=== PATIENT | female | born 1990 | race Two or more races ===

== ENCOUNTER 2017-04-28 19:11 | Emergency (ER) | payer MEDICAID ==
[~2017-04-28] VITALS: Ht 170.2 cm; Wt 112.5 kg
[2017-04-28] MEDS ORDERED: NKM (19:21)
--- NOTE | 2017-04-28 19:29 | Emergency Room Report ---
History of Present Illness General Chief Complaint: Abdominal Pain Source: Patient Present Illness HPI The patient states that she developed diarrhea 3 days ago along with right upper quadrant abdominal pain. She states over the past day she has also had recurrent nausea and vomiting and worsening of the pain in her right upper abdomen. She denies fever or chills. She denies dysuria or hematuria. She does admit that she's had several episodes of similar pain over the past few months. However not as severe. She has no other complaints. Allergies: Coded Allergies: No Known Allergies (Unverified , 10/09/15) Patient History Past Medical History: none, see triage record Social History: Reports: alcohol use, Denies: drug use, smoking Last Menstrual Period: 02/06/17 Now: No : 3 Para: 2 Reviewed Nursing Documentation: PMH: Agreed, PSxH: Agreed Nursing Documentation-PMH Past Medical History: No Stated History Review of Systems All Other Systems: negative except mentioned in HPI Physical Exam Vital Signs Date Time Temp Pulse Resp B/P Pulse Ox O2 Delivery O2 Flow Rate FiO2 04/28/17 19:17 98.4 96 14 127/82 97 Room Air Sp02 EP Interpretation: reviewed, normal General Appearance: no apparent distress, alert, GCS 15, non-toxic Head: normocephalic, atraumatic Eyes: bilateral eye PERRL, bilateral eye normal inspection ENT: hearing grossly normal, normal pharynx, no angioedema, normal voice Neck: full range of motion, supple/symm/no masses Respiratory: chest non-tender, lungs clear, normal breath sounds, speaking full sentences Cardiovascular #1: regular rate, rhythm, no edema Gastrointestinal: normal bowel sounds, soft, non-distended, no guarding, no rebound, tenderness - RUQ Rectal: deferred Musculoskeletal: back normal, gait/station normal, normal range of motion, non- tender Neurologic: alert, oriented x3, responsive, motor strength/tone normal, sensory intact, speech normal Psychiatric: judgement/insight normal, memory normal, mood/affect normal, no suicidal/homicidal ideation Skin: normal color, no rash, warm/dry, well hydrated Medical Decision Making Diagnostic Impression: Primary Impression: Abdominal pain Additional Impression: Transaminitis ER Course This patient presents with right upper quadrant abdominal pain with associated nausea and vomiting. She is also had diarrhea. Most likely this patient has a gastroenteritis. However, laboratory workup did show transaminitis. This could represent choledocho cholelithiasis. Also, the patient is exquisitely tender to palpation in the right upper cord and I felt that I should obtain a right upper quadrant ultrasound to rule out cholecystitis. There is no evidence of pancreatitis with a normal lipase. I do not suspect an atypical appendicitis or diverticulitis. Therefore, did not obtain a CT of the abdomen and pelvis at this time. At the time of this dictation, the patient is pending a right upper quadrant ultrasound. Please see addendum by Dr. Montejo. Labs Test 04/28/17 19:43 White Blood Count 10.3 K/UL (4.8-10.8) Red Blood Count 4.69 M/UL (4.20-5.40) Hemoglobin 12.4 G/DL (12.0-16.0) Hematocrit 38.1 % (37.0-47.0) Mean Corpuscular Volume 81 FL (80-99) Mean Corpuscular Hemoglobin 26.5 PG (27.0-31.0) Mean Corpuscular Hemoglobin Concent 32.7 G/DL (32.0-36.0) Red Cell Distribution Width 13.9 % (11.6-14.8) Platelet Count 280 K/UL (150-450) Mean Platelet Volume 7.4 FL (6.5-10.1) Neutrophils (%) (Auto) 78.2 % (45.0-75.0) Lymphocytes (%) (Auto) 16.5 % (20.0-45.0) Monocytes (%) (Auto) 4.4 % (1.0-10.0) Eosinophils (%) (Auto) 0.4 % (0.0-3.0) Basophils (%) (Auto) 0.6 % (0.0-2.0) Urine Color Yellow Urine Appearance Clear Urine pH 5 (4.5-8.0) Urine Specific [place] 1.025 (1.005-1.035) Urine Protein 1+ (NEGATIVE) Urine Glucose (UA) Negative (NEGATIVE) Urine Ketones Negative (NEGATIVE) Urine Occult Blood 3+ (NEGATIVE) Urine Nitrite Negative (NEGATIVE) Urine Bilirubin Negative (NEGATIVE) Urine Urobilinogen Normal MG/DL (0.0-1.0) Urine Leukocyte Esterase 2+ (NEGATIVE) Urine RBC 2-4 /HPF (0 - 2) Urine WBC 5-10 /HPF (0 - 2) Urine Squamous Epithelial Cells Many /LPF (NONE/OCC) Urine Bacteria Moderate /HPF (NONE) Urine HCG, Qualitative Negative Sodium Level 141 mEQ/L (135-145) Potassium Level 3.9 mEQ/L (3.4-4.9) Chloride Level 102 mEQ/L (98-107) Carbon Dioxide Level 26 mEQ/L (20-30) Anion Gap 13 (5-15) Blood Urea Nitrogen 10 mg/dL (7-23) Creatinine 0.8 mg/dL (0.5-0.9) Estimat Glomerular Filtration Rate > 60 mL/min (>60) Glucose Level 120 mg/dL (74-106) Calcium Level 9.0 mg/dL (8.6-10.2) Total Bilirubin 0.5 mg/dL (0.0-1.2) Aspartate Amino Transf (AST/SGOT) 57 U/L (5-40) Alanine Aminotransferase (ALT/SGPT) 77 U/L (3-33) Alkaline Phosphatase 106 U/L (35-104) Total Protein 8.0 g/dL (6.6-8.7) Albumin 4.3 g/dL (3.5-5.2) Globulin 3.7 g/dL Albumin/Globulin Ratio 1.1 (1.0-2.7) Lipase 15 U/L (< 60) Last Vital Signs Date Time Temp Pulse Resp B/P Pulse Ox O2 Delivery O2 Flow Rate FiO2 04/28/17 19:17 98.4 96 14 127/82 97 Room Air Condition: Stable KEVIN TORRES D.O. Apr 28, 2017 19:29
[2017-04-28 19:51] VITALS: BP 120/75
[2017-04-28 20:32] LABS: APPEARANCE,URINE CLEAR; KETONES,URINE NEGATIVE (NEGATIVE); LEUKOCYTE ESTERASE ,URINE 2+ (NEGATIVE); NITRITE,URINE NEGATIVE (NEGATIVE); PH,URINE 5 (4.5-8.0); PROTEIN,URINE 1+ (NEGATIVE); UROBILINOGEN,URINE NORMAL MG/DL (0.0-1.0)
[2017-04-28 20:39] LABS: BASOPHILS % (AUTO) 0.6 % (0.0-2.0); EOSINOPHILS % (AUTO) 0.4 % (0.0-3.0); LYMPHOCYTES % (AUTO) 16.5 % (20.0-45.0); MEAN CORPUSCULAR HEMOGLOBIN 26.5 PG (27.0-31.0); MEAN CORPUSCULAR HGB CONC 32.7 G/DL (32.0-36.0); MEAN CORPUSCULAR VOLUME 81 FL (80-99); MEAN PLATELET VOLUME 7.4 FL (6.5-10.1); MONOCYTES % (AUTO) 4.4 % (1.0-10.0); NEUTROPHILS % (AUTO) 78.2 % (45.0-75.0); PLATELET COUNT 280 K/UL (150-450); RED BLOOD COUNT 4.69 M/UL (4.20-5.40); RED CELL DISTRIBUTION WIDTH 13.9 % (11.6-14.8); WHITE BLOOD COUNT 10.3 K/UL (4.8-10.8)
[2017-04-28 20:40] LABS: ALANINE AMINOTRANSFERASE 77 U/L (3-33); ALBUMIN/GLOBULIN RATIO 1.1 (1.0-2.7); ANION GAP 13 (5-15); ASPARTATE AMINO TRANSFERASE 57 U/L (5-40); CARBON DIOXIDE 26 mEQ/L (20-30); CHLORIDE 102 mEQ/L (98-107); CREATININE 0.8 mg/dL (0.5-0.9); GLOMERULAR FILTRATION RATE > 60 mL/min (>60); HEMOLYSIS 3; LIPASE 15 U/L (< 60); POTASSIUM 3.9 mEQ/L (3.4-4.9); SODIUM 141 mEQ/L (135-145)
[2017-04-28 20:51] LABS: BACTERIA,URINE MODERATE /HPF; SQUAMOUS EPITHELIAL CELL,UR MANY /LPF (NONE/OCC)
[2017-04-28] MEDS ORDERED: IBUPROFEN600 MG ORAL (22:30)
[2017-04-28 22:58] VITALS: BP 118/64
[2017-04-28 23:01] VITALS: BP 118/64
--- NOTE | 2017-04-29 09:52 | Diagnostic Imaging Report ---
Indications: Right upper quadrant abdominal pain, nausea and vomiting, elevated hepatic and renal function tests--third episode of same and last 7 months, per patient Technique: Transabdominal real-time grayscale and duplex Doppler imaging of the upper abdomen and retroperitoneum was performed. Findings: Comparison: None. Liver normal size and surface contour, parenchymal echogenicity. No focal lesions. Gallbladder contains multiple echogenic shadowing foci.. No mural thickening or adjacent fluid collections. Sonographic Watson sign not reported.. Bile ducts normal caliber. Common bile duct 5 mm. Pancreas head and body suboptimally visualized without obvious abnormality; tail completely obscured. Spleen 13 cm, no focal abnormality. Right kidney unremarkable. Left kidney unremarkable. Abdominal aorta, intrahepatic portion of inferior vena cava patent, normal caliber. Duplex Doppler imaging demonstrates antegrade flow in splenic, portal, hepatic veins. No ascites. IMPRESSION: Cholelithiasis. No imaging evidence of acute cholecystitis. Sonographic Waston sign is not reported. Correlate clinically. Suboptimal visualization of pancreas Splenomegaly Remainder of exam unremarkable.
== END 2017-04-28 23:00 | disposition home or self-care (01) ==
LOC: EMR 20:03
DX: R10.11 Right upper quadrant pain (principal); R11.2 Nausea with vomiting, unspecified; R16.1 Splenomegaly, not elsewhere classified; R19.7 Diarrhea, unspecified; R74.0 Nonspecific elevation of levels of transaminase and lactic acid dehydrogenase [LDH]; K80.20 Calculus of gallbladder without cholecystitis without obstruction; Z72.89 Other problems related to lifestyle
CPT/HCPCS: 36415; 76700; 80053; 81003; 81025; 83690; 85025; 87086; 87181; 96374; 96375; 99284; J2405

== ENCOUNTER 2018-10-06 01:16 | Emergency (ER) | payer MEDICAID ==
[~2018-10-06] VITALS: Ht 170.2 cm; Wt 113.4 kg
[~2018-10-06 01:16] MED LIST: IBUPROFEN600 MG ORAL; NKM
[2018-10-06] MEDS ORDERED: NKM (01:30)
[2018-10-06 01:40] VITALS: BP 126/82
[2018-10-06] MEDS ORDERED: Sodium Chloride 500ML 500 ML IV ONE (01:43)
[2018-10-06] MEDS ORDERED: Morphine Sulfate 4mg/ml Inj (IV/IM USE ONLY) IVP ONE (01:45)
[2018-10-06 02:13] LABS: BASOPHILS % (AUTO) 0.8 % (0.0-2.0); EOSINOPHILS % (AUTO) 0.5 % (0.0-3.0); HEMATOCRIT 40.8 % (37.0-47.0); HEMOGLOBIN 13.5 G/DL (12.0-16.0); LYMPHOCYTES % (AUTO) 20.7 % (20.0-45.0); MEAN CORPUSCULAR VOLUME 77 FL (80-99); MONOCYTES % (AUTO) 3.8 % (1.0-10.0); NEUTROPHILS % (AUTO) 74.2 % (45.0-75.0); PLATELET COUNT 342 K/UL (150-450); RED BLOOD COUNT 5.29 M/UL (4.20-5.40); RED CELL DISTRIBUTION WIDTH 12.3 % (11.6-14.8); WHITE BLOOD COUNT 11.8 K/UL (4.8-10.8)
[2018-10-06 02:19] LABS: BILIRUBIN, URINE NEGATIVE (NEGATIVE); GLUCOSE, URINE (UA) NEGATIVE (NEGATIVE); KETONES,URINE NEGATIVE (NEGATIVE); NITRITE,URINE NEGATIVE (NEGATIVE); PH,URINE 6.5 (4.5-8.0); PROTEIN,URINE 1+ (NEGATIVE); UROBILINOGEN,URINE 1 MG/DL (0.0-1.0)
[2018-10-06 02:22] LABS: ANION GAP 9 mmol/L (5-15); BLOOD UREA NITROGEN 16 mg/dL (7-18); CARBON DIOXIDE 27 MMOL/L (21-32); CHLORIDE 105 MMOL/L (98-107); CREATININE 0.8 MG/DL (0.55-1.30); POTASSIUM 3.7 MMOL/L (3.5-5.1); SODIUM 141 MMOL/L (136-145)
[2018-10-06 02:27] LABS: ALANINE AMINOTRANSFERASE 25 U/L (12-78); ALBUMIN 3.5 G/DL (3.4-5.0); ALBUMIN/GLOBULIN RATIO 0.6 (1.0-2.7); ALKALINE PHOSPHATASE 102 U/L (46-116); ASPARTATE AMINO TRANSFERASE 15 U/L (15-37); BILIRUBIN,TOTAL 0.3 MG/DL (0.2-1.0)
[2018-10-06 02:29] LABS: APPEARANCE,URINE CLEAR; COLOR,URINE YELLOW; LEUKOCYTE ESTERASE ,URINE 1+ (NEGATIVE)
[2018-10-06] MEDS ORDERED: Ketorolac 30mg Inj IV ONE (02:45)
[2018-10-06 03:40] VITALS: BP 130/83
[2018-10-06] MEDS ORDERED: ACETAMINOPHEN-1 EAC1 ORAL (03:48)
[2018-10-06 03:57] VITALS: BP 130/83
--- NOTE | 2018-10-06 06:18 | Emergency Room Report ---
History of Present Illness General Chief Complaint: Abdominal Pain Source: Patient Present Illness HPI 27-year-old female presents ED for evaluation. Complaining of right upper quadrant pain 1 day. Sharp, 8 out of 10, radiating to the back. Notes nausea and vomiting. Denies fevers chills. Denies chest pain or shortness of breath. States she's had few episodes of similar pain in the past. Was told that she has gallstones. No other aggravating relieving factors. Denies any other associated symptoms Allergies: Coded Allergies: No Known Allergies (Unverified , 10/09/15) Patient History Past Medical History: none Past Surgical History: none Pertinent Family History: none Social History: Denies: smoking, alcohol use, drug use Last Menstrual Period: sep 07, 2018 Now: No Immunizations: UTD Reviewed Nursing Documentation: PMH: Agreed; PSxH: Agreed Nursing Documentation-PMH Past Medical History: No Stated History Review of Systems All Other Systems: negative except mentioned in HPI Physical Exam Vital Signs Date Time Temp Pulse Resp B/P (MAP) Pulse Ox O2 Delivery O2 Flow Rate FiO2 10/06/18 01:25 98.8 75 16 126/82 99 10/06/18 01:40 Room Air 99 Sp02 EP Interpretation: reviewed, normal General Appearance: well appearing, alert, obese Head: normocephalic, atraumatic Eyes: bilateral eye normal inspection, bilateral eye PERRL ENT: hearing grossly normal, normal pharynx, no angioedema, normal voice Neck: full range of motion, supple/symm/no masses Respiratory: chest non-tender, lungs clear, normal breath sounds, speaking full sentences Cardiovascular #1: regular rate, rhythm, no edema Cardiovascular #2: 2+ carotid (R), 2+ carotid (L), 2+ radial (R), 2+ radial (L) , 2+ dorsalis pedis (R), 2+ dorsalis pedis (L) Gastrointestinal: tenderness - RUQ Rectal: deferred Genitourinary: normal inspection, no CVA tenderness Musculoskeletal: back normal, gait/station normal, normal range of motion, non- tender Neurologic: alert, oriented x3, responsive, motor strength/tone normal, sensory intact, speech normal Psychiatric: judgement/insight normal, memory normal, mood/affect normal, no suicidal/homicidal ideation Reflexes: 3+ bicep (R), 3+ bicep (L), 3+ tricep (R), 3+ tricep (L), 3+ knee (R) , 3+ knee (L) Skin: normal color, no rash, warm/dry, well hydrated Lymphatic: no adenopathy Medical Decision Making Diagnostic Impression: Primary Impression: Cholelithiasis Qualified Codes: K80.20 - Calculus of gallbladder without cholecystitis without obstruction ER Course Hospital Course 27-year-old F presents to ED with RUQ abdominal pain Differential diagnosis includes - pyelonephritis, kidney stone, gastritis, cholecystitis Clinical course Patient placed on stretcher. After initial history and physical I ordered labs , IV fluids, pain medications and US Labs - no leukocytosis, electrolytes ok, LFTs normal, UA unremarkable US shows gallstones, some GB thickening, negative murphys sign, CBD 8mm Upon reassessment, patient states pain has improved. I discussed with patient options for outpatient surgical referral given patient has had 3-4 episodes of pain. Recommend low-fat diet as fast food greasy food can trigger the symptoms I feel this is a highly complex case requiring extensive working including EKG/ Rhythm strip, Xray/CT/US, Blood/urine lab work, repeat exams while in ED, and administration of strong opiates/narcotics for pain control, admission to hospital or close patient follow up. Diagnosis - cholelithiasis Stable and discharged to home with prescription for Tylenol #3. Followup with PMD/surgery. Return to ED if symptoms recur or worsen Labs Test 10/06/18 02:00 White Blood Count 11.8 K/UL (4.8-10.8) Red Blood Count 5.29 M/UL (4.20-5.40) Hemoglobin 13.5 G/DL (12.0-16.0) Hematocrit 40.8 % (37.0-47.0) Mean Corpuscular Volume 77 FL (80-99) Mean Corpuscular Hemoglobin 25.5 PG (27.0-31.0) Mean Corpuscular Hemoglobin Concent 33.1 G/DL (32.0-36.0) Red Cell Distribution Width 12.3 % (11.6-14.8) Platelet Count 342 K/UL (150-450) Mean Platelet Volume 6.9 FL (6.5-10.1) Neutrophils (%) (Auto) 74.2 % (45.0-75.0) Lymphocytes (%) (Auto) 20.7 % (20.0-45.0) Monocytes (%) (Auto) 3.8 % (1.0-10.0) Eosinophils (%) (Auto) 0.5 % (0.0-3.0) Basophils (%) (Auto) 0.8 % (0.0-2.0) Urine Color Yellow Urine Appearance Clear Urine pH 6.5 (4.5-8.0) Urine Specific [place] 1.020 (1.005-1.035) Urine Protein 1+ (NEGATIVE) Urine Glucose (UA) Negative (NEGATIVE) Urine Ketones Negative (NEGATIVE) Urine Blood 1+ (NEGATIVE) Urine Nitrite Negative (NEGATIVE) Urine Bilirubin Negative (NEGATIVE) Urine Urobilinogen 1 MG/DL (0.0-1.0) Urine Leukocyte Esterase 1+ (NEGATIVE) Urine RBC 2-4 /HPF (0 - 2) Urine WBC 2-4 /HPF (0 - 2) Urine Squamous Epithelial Cells Moderate /LPF (NONE/OCC) Urine Bacteria Few /HPF (NONE) Urine HCG, Qualitative Negative (NEGATIVE) Sodium Level 141 MMOL/L (136-145) Potassium Level 3.7 MMOL/L (3.5-5.1) Chloride Level 105 MMOL/L (98-107) Carbon Dioxide Level 27 MMOL/L (21-32) Anion Gap 9 mmol/L (5-15) Blood Urea Nitrogen 16 mg/dL (7-18) Creatinine 0.8 MG/DL (0.55-1.30) Estimat Glomerular Filtration Rate > 60 mL/min (>60) Glucose Level 125 MG/DL (74-106) Calcium Level 9.0 MG/DL (8.5-10.1) Total Bilirubin 0.3 MG/DL (0.2-1.0) Aspartate Amino Transf (AST/SGOT) 15 U/L (15-37) Alanine Aminotransferase (ALT/SGPT) 25 U/L (12-78) Alkaline Phosphatase 102 U/L (46-116) Total Protein 8.9 G/DL (6.4-8.2) Albumin 3.5 G/DL (3.4-5.0) Globulin 5.4 g/dL Albumin/Globulin Ratio 0.6 (1.0-2.7) Lipase 80 U/L (73-393) CT/MRI/US Diagnostic Results CT/MRI/US Diagnostic Results : Imaging Test Ordered: ABD US Impression GB thickening. gallstones. (-) murphys, CBD 8mm. Last Vital Signs Date Time Temp Pulse Resp B/P (MAP) Pulse Ox O2 Delivery O2 Flow Rate FiO2 10/06/18 03:57 98.8 73 18 130/83 99 Room Air 99 Status: improved Disposition: HOME, SELF-CARE Condition: Stable Scripts Acetaminophen With Codeine (T#3) (TYLENOL #3 TAB*) Y Tab 1 TAB ORAL Q8H PRN for For Pain, #20 TAB Prov: Jhonny Martell MD 10/06/18 Referrals: [facility],REFERRING (PCP) Marvin Sepulveda Patient Instructions: Cholelithiasis, [id number] Jhonny Martell MD Oct 06, 2018 06:18
--- NOTE | 2018-10-06 10:34 | Diagnostic Imaging Report ---
Indication: Abdominal pain Technique: Parry-scale and duplex images of the upper abdomen were obtained. Doppler interrogation of the hepatic and pancreatic vessels Comparison: 04/28/2017 Findings: Gallbladder demonstrates gallstones. Gallbladder wall is thickened, measures 5 mm thick. Sonographic Watson's sign is negative. Common bile duct measures 8 mm in diameter. No intrahepatic biliary ductal dilatation. Liver demonstrates normal echogenicity, no focal abnormality. Portal vein and hepatic veins are patent. Pancreas is unremarkable. Spleen is unremarkable. Left kidney measures 12.7 cm in length. Right kidney measures 10.4 cm length. Both kidneys demonstrate normal echogenicity. There is no hydronephrosis. No focal abnormality . Non-aneurysmal abdominal aorta . Compared to the prior study, cholelithiasis was previously reported. The gallbladder wall thickening is a new finding. The common bile duct dilatation is a new finding. Impression: Cholelithiasis, also reported on prior exam.. Gallbladder wall thickening, raises concern for acute cholecystitis. Consider hepatobiliary nuclear scan if there is high clinical suspicion Mildly dilated common bile duct, raises concern for downstream obstruction. Correlate with liver function tests, consider MRCP if clinically indicated This agrees with the preliminary interpretation provided overnight by [facility].
== END 2018-10-06 03:57 | disposition home or self-care (01) ==
LOC: EMR 02:07
DX: K80.20 Calculus of gallbladder without cholecystitis without obstruction (principal)
CPT/HCPCS: 36415; 76700; 80053; 81003; 81025; 83690; 85025; 96374; 96375; 99284; J1885; J2270; J2405; J7040

== ENCOUNTER 2020-04-30 14:07 | Emergency (ER) | payer MEDICAID ==
[~2020-04-30] VITALS: Ht 170.2 cm; Wt 125.2 kg
[~2020-04-30 14:07] MED LIST changes: +ACETAMINOPHEN-1 EAC1 ORAL
[2020-04-30 15:14] LABS: APPEARANCE,URINE VERY CLOUDY; BILIRUBIN, URINE NEGATIVE (NEGATIVE); GLUCOSE, URINE (UA) NEGATIVE (NEGATIVE); KETONES,URINE 1+ (NEGATIVE); LEUKOCYTE ESTERASE ,URINE 3+ (NEGATIVE); NITRITE,URINE NEGATIVE (NEGATIVE); PH,URINE 6.5 (4.5-8.0); PROTEIN,URINE 2+ (NEGATIVE); UROBILINOGEN,URINE 1 MG/DL (0.0-1.0)
[2020-04-30 15:15] LABS: BASOPHILS % (AUTO) 1.2 % (0.0-2.0); EOSINOPHILS % (AUTO) 0.8 % (0.0-3.0); HEMATOCRIT 38.8 % (37.0-47.0); HEMOGLOBIN 12.6 G/DL (12.0-16.0); MEAN CORPUSCULAR VOLUME 81 FL (80-99); MONOCYTES % (AUTO) 5.5 % (1.0-10.0); NEUTROPHILS % (AUTO) 62.6 % (45.0-75.0); PLATELET COUNT 302 K/UL (150-450); RED BLOOD COUNT 4.81 M/UL (4.20-5.40); WHITE BLOOD COUNT 11.5 K/UL (4.8-10.8)
[2020-04-30 15:16] LABS: COLOR,URINE RED
--- NOTE | 2020-04-30 15:20 | Emergency Room Report ---
History of Present Illness General Chief Complaint: Complications Source: Patient Present Illness HPI 29 YO female presents to the ED c/o non painful vaginal bleeding x 4 days. Pt. reports being approx. 8 weeks . She is . PT. estimates changing a pad 3 times a day on the first two days. Pt. states not ( today), she sees dark colored clots when urinating. She denies rashes, genital sores, tender lymph nodes. Abdominal pain /tenderness. She denies cramping. She denies vaginal discharge. Denies constipation or diarrhea. She denies N/V, Fevers or chills. She has appt. with OBGYN tomorrow. She reports having a miscarriage in 2006. She is not sure what blood type she is. Allergies: Coded Allergies: No Known Allergies (Unverified , 10/09/15) COVID-19 Screening Contact w/high risk pt: No Recent Travel to affected area: No Experienced COVID-19 symptoms?: No COVID-19 Testing performed TANK BUILDER: No Patient History Past Medical History: see triage record Past Surgical History: none Pertinent Family History: none Last Menstrual Period: 03/05/20 Now: Yes : 4 Para: 2 Reviewed Nursing Documentation: PMH: Agreed; PSxH: Agreed Nursing Documentation-PMH Past Medical History: No Stated History Review of Systems All Other Systems: negative except mentioned in HPI Physical Exam Vital Signs Date Time Temp Pulse Resp B/P (MAP) Pulse Ox O2 Delivery O2 Flow Rate FiO2 04/30/20 14:41 98.1 97 16 106/74 (85) 99 Room Air Sp02 EP Interpretation: reviewed, normal General Appearance: no apparent distress, alert, GCS 15, non-toxic Head: normocephalic, atraumatic Eyes: bilateral eye normal inspection, bilateral eye PERRL ENT: hearing grossly normal, normal voice Neck: full range of motion Respiratory: lungs clear, normal breath sounds, speaking full sentences Cardiovascular #1: regular rate, rhythm Gastrointestinal: normal bowel sounds, non tender, soft, non-distended, no guarding Genitourinary: normal inspection, no CVA tenderness, deferred - for US. Musculoskeletal: back normal, normal range of motion, gait/station normal, non- tender Neurologic: alert, motor strength/tone normal, oriented x3, sensory intact, responsive, speech normal Psychiatric: judgement/insight normal Skin: no rash, normal color Lymphatic: no adenopathy Medical Decision Making PA Attestation Dr. Hinds is my supervising Physician whom patient management has been discussed with. Diagnostic Impression: Primary Impression: UTI in Qualified Codes: O23.41 - Unspecified infection of urinary tract in , first trimester Additional Impressions: Miscarriage, threatened, early Vaginal bleeding during ER Course 29 YO female presents to the ED c/o non painful vaginal bleeding x 4 days. Pt. reports being approx. 8 weeks . She is . PT. estimates changing a pad 3 times a day on the first two days. Pt. states not ( today), she sees dark colored clots when urinating. She denies rashes, genital sores, tender lymph nodes. Abdominal pain /tenderness. She denies cramping. She denies vaginal discharge. Denies constipation or diarrhea. She denies N/V, Fevers or chills. She has appt. with OBGYN tomorrow. She reports having a miscarriage in 2006. She is not sure what blood type she is. Ddx considered but are not limited to: Fibroid, ectopic , Fibroid, Spontaneous ,placenta previa, placenta abruptio Vital signs: are WNL, pt. is afebrile H&PE are most consistent with: Spotting during early , ORDERS: -CBC: unremarkable/wbc 11.5 -BMP: unremarkable -UA: POSITIVE FOR UTI , presence of blood and RBC's as well -Serum Hcg Quant: [id number] -ABO: O POSITIVE - Blood/RH type and screen- see attached labs -Pelvic US complete- IMPRESSION:A SMALL GESTATIONAL SAC APPROXIMATELY 4 WEEKS BY SONOGRAPHIC MEASUREMENTS. SMALL YOLK SAC NOTED BUT NO DEFINITE POLE SEEN AT THIS TIME. ED INTERVENTIONS: None at this time. D/w pt. proper OBGYN follow up and repeat blood work ( HCg) and US. D/w pt. this may represent a possible miscarriage. -I do not identify an emergent condition at this time. With current presentation , pt. is stable for close outpatient follow up and conservative treatment. D/ w pt. to return promptly to ED with worsening or new symptoms.- Pt. verbalizes' understanding and agreement with proposed treatment plan. DISCHARGE: At this time pt. is stable for d/c to home. Will provide printed patient care instructions, and any necessary prescriptions. Care plan and follow up instructions have been discussed with the patient prior to discharge. Labs Test 04/30/20 14:50 White Blood Count 11.5 K/UL (4.8-10.8) Red Blood Count 4.81 M/UL (4.20-5.40) Hemoglobin 12.6 G/DL (12.0-16.0) Hematocrit 38.8 % (37.0-47.0) Mean Corpuscular Volume 81 FL (80-99) Mean Corpuscular Hemoglobin 26.2 PG (27.0-31.0) Mean Corpuscular Hemoglobin Concent 32.5 G/DL (32.0-36.0) Red Cell Distribution Width 14.0 % (11.6-14.8) Platelet Count 302 K/UL (150-450) Mean Platelet Volume 7.2 FL (6.5-10.1) Neutrophils (%) (Auto) 62.6 % (45.0-75.0) Lymphocytes (%) (Auto) 30.0 % (20.0-45.0) Monocytes (%) (Auto) 5.5 % (1.0-10.0) Eosinophils (%) (Auto) 0.8 % (0.0-3.0) Basophils (%) (Auto) 1.2 % (0.0-2.0) Urine Color Red Urine Appearance Very cloudy Urine pH 6.5 (4.5-8.0) Urine Specific [place] 1.010 (1.005-1.035) Urine Protein 2+ (NEGATIVE) Urine Glucose (UA) Negative (NEGATIVE) Urine Ketones 1+ (NEGATIVE) Urine Blood 5+ (NEGATIVE) Urine Nitrite Negative (NEGATIVE) Urine Bilirubin Negative (NEGATIVE) Urine Urobilinogen 1 MG/DL (0.0-1.0) Urine Leukocyte Esterase 3+ (NEGATIVE) Urine RBC Tntc /HPF (0 - 2) Urine WBC 10-15 /HPF (0 - 2) Urine Squamous Epithelial Cells Moderate /LPF (NONE/OCC) Urine Bacteria Moderate /HPF (NONE) Sodium Level 138 MMOL/L (136-145) Potassium Level 3.7 MMOL/L (3.5-5.1) Chloride Level 103 MMOL/L (98-107) Carbon Dioxide Level 28 MMOL/L (21-32) Anion Gap 7 mmol/L (5-15) Blood Urea Nitrogen 11 mg/dL (7-18) Creatinine 0.7 MG/DL (0.55-1.30) Estimat Glomerular Filtration Rate > 60 mL/min (>60) Glucose Level 107 MG/DL (74-106) Calcium Level 8.4 MG/DL (8.5-10.1) Total Bilirubin 0.3 MG/DL (0.2-1.0) Aspartate Amino Transf (AST/SGOT) 16 U/L (15-37) Alanine Aminotransferase (ALT/SGPT) 21 U/L (12-78) Alkaline Phosphatase 77 U/L (46-116) Total Protein 8.1 G/DL (6.4-8.2) Albumin 3.4 G/DL (3.4-5.0) Globulin 4.7 g/dL Albumin/Globulin Ratio 0.7 (1.0-2.7) Lipase 99 U/L (73-393) CT/MRI/US Diagnostic Results CT/MRI/US Diagnostic Results : Imaging Test Ordered: OB US Impression " IMPRESSION: A SMALL GESTATIONAL SAC APPROXIMATELY 4 WEEKS BY SONOGRAPHIC MEASUREMENTS. SMALL YOLK SAC NOTED BUT NO DEFINITE POLE SEEN AT THIS TIME. RECOMMEND CLINICAL CORRELATION WITH HCG LEVEL AND FOLLOW-UP EXAM." Per official radiology report- Please see report for specific details. Last Vital Signs Date Time Temp Pulse Resp B/P (MAP) Pulse Ox O2 Delivery O2 Flow Rate FiO2 04/30/20 14:41 98.1 97 16 106/74 (85) 99 Room Air Disposition: HOME, SELF-CARE Condition: Stable Scripts Cephalexin* (KEFLEX*) 500 Mg Capsule 500 MG ORAL EVERY 12 HOURS for 7 Days, #14 CAP 0 Refills Prov: Sofya Lowe 04/30/20 Patient Instructions: and Urinary Tract Infection, Vaginal Bleeding During , First Trimester, [id number] Additional Instructions: Take medications as directed. Follow up with a OBGYN within 3 days, even if your symptoms have resolved. Your Hcg Quant was [id number] Return sooner to ED if new symptoms occur, or current symptoms become worse. - Please note that this Emergency Department Report was dictated using [employer]izIQ[employer] technology software, occasionally this can lead to erroneous entry secondary to interpretation by the dictation equipment. Sofya Lowe Apr 30, 2020 15:20
[2020-04-30 15:33] LABS: ANION GAP 7 mmol/L (5-15); BLOOD UREA NITROGEN 11 mg/dL (7-18); CALCIUM 8.4 MG/DL (8.5-10.1); CARBON DIOXIDE 28 MMOL/L (21-32); CHLORIDE 103 MMOL/L (98-107); CREATININE 0.7 MG/DL (0.55-1.30); POTASSIUM 3.7 MMOL/L (3.5-5.1); SODIUM 138 MMOL/L (136-145)
[2020-04-30 15:38] LABS: ALANINE AMINOTRANSFERASE 21 U/L (12-78); ALBUMIN 3.4 G/DL (3.4-5.0); ALBUMIN/GLOBULIN RATIO 0.7 (1.0-2.7); ALKALINE PHOSPHATASE 77 U/L (46-116); ASPARTATE AMINO TRANSFERASE 16 U/L (15-37); BILIRUBIN,TOTAL 0.3 MG/DL (0.2-1.0)
--- NOTE | 2020-04-30 15:42 | Diagnostic Imaging Report ---
EXAM: US OB 1st Trimester Gestation CLINICAL HISTORY: Pelvic pain. Early OB. COMPARISON: None TECHNIQUE: Ultrasound examination of the pelvis includes grayscale images, and color and spectral doppler analysis. FINDINGS: Transabdominal and transvaginal technique utilized. The uterus measures 9.5 x 5.2 x 7 cm. Myometrium is homogeneous. In the endometrial cavity, there is a small saclike structure identified. By mean sac diameter, and estimates 4 weeks of gestation. A small yolk sac is seen but no definite pole seen at this time. Ovaries appear unremarkable on transabdominal images but not well seen on transvaginal images. Vascular flow noted. There is no free fluid. IMPRESSION: A SMALL GESTATIONAL SAC APPROXIMATELY 4 WEEKS BY SONOGRAPHIC MEASUREMENTS. SMALL YOLK SAC NOTED BUT NO DEFINITE POLE SEEN AT THIS TIME. RECOMMEND CLINICAL CORRELATION WITH HCG LEVEL AND FOLLOW-UP EXAM.
[2020-04-30] MEDS ORDERED: CEPHALEXIN500 MG ORAL (16:26)
[2020-04-30 16:38] VITALS: BP 106/74
== END 2020-04-30 16:38 | disposition home or self-care (01) ==
LOC: EMR 16:25
DX: O20.0 Threatened abortion (principal); O23.41 Unspecified infection of urinary tract in pregnancy, first trimester; Z3A.01 Less than 8 weeks gestation of pregnancy
CPT/HCPCS: 36415; 76801; 76817; 80053; 81003; 83690; 84702; 85025; 86900; 86901; 87086; Z7502; 99284